=== PATIENT | male | born 1980 | race Caucasian/White ===

== ENCOUNTER 2021-05-20 23:32 | Inpatient (IN) | payer MEDICARE, MEDICAID, SELFPAY ==
[2021-05-20 23:56] VITALS: BMI 36.9
--- NOTE | 2021-05-21 01:14 | PC.ADMIT ---
Pt is a 41 year old male, Covid Negative, Tox + for Benzo, amphetamine(Aderalle). Diagnosis: Schizoaffective Disorder Bipolar type. Pt was seen transferred from [facility] after being seen in the [facility] with dishevelled appearance. Upon admission pt appears disorganized, stating that he would be relocating to [place] after Discharge. Speech is pressured, with normal rate rhythm and carlos eduardo. Pt states he would like to establish therapy care with a therapist in [place]..
--- NOTE | 2021-05-21 05:34 | PC.NURSE ---
05/21/21: PATIENT SIGNED A 3 DAY NOTICE. UP ON 05/26/21
[2021-05-21 06:00] VITALS: BP 143/69; PULSE 64; RESP 16; TEMP 35.8; O2SAT 100
[2021-05-21 08:35] LABS: MANUAL DIFF FLAG NO
[2021-05-21 08:42] LABS: Basophils Absolute Auto 0.1 X10*3/uL (0.0-0.2); Eosinophils Absolute Auto 0.2 X10*3/uL (0.0-0.4); Eosinophils Percent Auto 3.5 % (0-4); Hemoglobin 13.2 g/dl (14.0-18.0); Imm Gran Abs Auto 0.01 X10*3/uL (0.00-0.03); Imm Gran Pct Auto 0.2 % (0.0-0.4); Lymphocytes Absolute Auto 1.7 X10*3/uL (1.2-4.9); Lymphocytes Percent Auto 29.4 % (20-40); Mean Corpuscular Hemoglobin 31.3 pg (27.0-33.0); Mean Corpuscular Volume 94.8 fL (80-98); Mean Platelet Volume 10.8 fL (9.4-12.4); Monocytes Absolute Auto 0.6 X10*3/uL (0.1-1.2); Monocytes Percent Auto 10.8 % (2-11); Neutrophils Absolute Auto 3.2 X10*3/uL (2.0-8.3); Neutrophils Percent Auto 55.1 % (45-73); Platelet Count 246 X10*3/uL (160-400); Red Blood Count 4.22 X10*6/uL (4.60-5.80); Red Cell Distribution Width 13.8 % (11.0-16.0); White Blood Count 5.7 X10*3/uL (4.8-10.8)
[2021-05-21 09:43] LABS: Alanine Aminotransferase 9 U/L (0-40); Albumin Level 3.9 g/dL (3.5-5.0); Alkaline Phosphatase 41 U/L (39-117); Anion Gap 9 (12-20); Aspartate Amino Transferase 12 U/L (5-37); Bilirubin Total 0.2 mg/dL (0.0-1.0); Blood Urea Nitrogen 13 mg/dL (9-16); Calcium 8.9 mg/dL (8.4-10.2); Carbon Dioxide 23 mmol/L (22-29); Chloride 112 mmol/L (96-108); Cholesterol 136 mg/dL; Creatinine Clr Calc Pharmacy 129.4; Estimated Glomerular Filt Rate > 60; Glucose Fasting 90 mg/dL (60-99); HDL Cholesterol 35 mg/dL; LDL Cholesterol Calculated 69 mg/dl; Potassium 4.3 mmol/L (3.3-5.1); Sodium 140 mmol/L (135-145); Total Protein 6.6 g/dL (6.5-8.0); Triglycerides 162 mg/dL
[2021-05-21 09:50] LABS: Folate 6.5 ng/mL (> or = 4.0); Vitamin B12 413 pg/mL (200-900)
[2021-05-21 10:04] LABS: Free T4 (Free Thyroxine) 0.97 ng/dL (0.71-1.85); Thyroid Stimulating Hormone 1.94 uIU/mL (0.32-4.0)
[2021-05-21 10:06] LABS: Estimated Average Glucose 91 mg/dL; Hemoglobin A1c % 4.8 %
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
[2021-05-21] MEDS: Nicotine Polacrilex 2 MG GUM 4 MG BUCCAL ×2 (16:35→19:54)
[2021-05-21] MEDS: Nicotine 21 MG PATCH.TD24 TRANSDERMA (16:36)
[2021-05-21] MEDS: Amphetamine Mixed Salts 10 MG TABLET 30 MG PO (16:36)
[2021-05-21] MEDS: lamoTRIgine 100 MG TABLET PO (16:36)
[2021-05-21] MEDS: Topiramate 100 MG TABLET 200 MG PO (17:03)
[2021-05-21] MEDS: Rivaroxaban 20 MG TABLET PO (17:46)
[2021-05-21 18:00] VITALS: BP 140/74; PULSE 62; RESP 16; TEMP 36.1; O2SAT 100
[2021-05-21 20:34] VITALS: BP 119/87; PULSE 123
[2021-05-21] MEDS: Lithium Carbonate 300 MG TABLET 900 MG PO (20:34)
[2021-05-21] MEDS: Melatonin 3 MG TABLET 6 MG PO (20:34)
[2021-05-21] MEDS: Propranolol HCL 20 MG TABLET PO (20:34)
[2021-05-21] MEDS: hydrOXYzine HCL 50 MG TABLET PO (21:51)
[2021-05-22 06:00] VITALS: BP 143/66; PULSE 56; RESP 16; TEMP 36.1; O2SAT 100
[2021-05-22] MEDS: Amphetamine Mixed Salts 10 MG TABLET 30 MG PO ×2 (08:54→14:19)
[2021-05-22] MEDS: lamoTRIgine 100 MG TABLET PO (08:55)
[2021-05-22] MEDS: Topiramate 100 MG TABLET 200 MG PO (08:55)
[2021-05-22] MEDS: Nicotine 21 MG PATCH.TD24 TRANSDERMA (08:55)
[2021-05-22 09:52] VITALS: BP 133/76; PULSE 97
[2021-05-22] MEDS: Propranolol HCL 20 MG TABLET PO ×2 (09:52→20:27)
[2021-05-22] MEDS: Nicotine Polacrilex 2 MG GUM 4 MG BUCCAL ×2 (14:20→16:48)
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
[2021-05-22] MEDS: Rivaroxaban 20 MG TABLET PO (16:48)
[2021-05-22 18:00] VITALS: BP 134/88; PULSE 119; RESP 16; TEMP 36.1; O2SAT 99
[2021-05-22 20:27] VITALS: BP 134/88; PULSE 119
[2021-05-22] MEDS: Lithium Carbonate 300 MG TABLET 900 MG PO (20:27)
[2021-05-22] MEDS: Melatonin 3 MG TABLET 6 MG PO (20:27)
[2021-05-22] MEDS: hydrOXYzine HCL 25 MG TABLET PO (20:28)
--- NOTE | 2021-05-22 23:26 | HO.PSYCHPN ---
Subjective Subjective Date of Service: 05/22/21 Reason For Visit: Depression Subjective Notes: 3 Day Interim History: pt seen on 05/22/21 pt reports that he's good' and continues to deny any SI/HI/AVH, He reports meds are well tolerated. Pt c/o infection on left lower leg which lyric writer examines and looks like possible cellulites. Patient reiterates that he is doing fine and ready to go. His 3 day is up on 05/23 and though he initially said he would stay over the weekend, said he is ready to go home, and very much wants to get his dog out of the kennel. College Tutor mentioned that patient seemed to be talking a little fast to which patient agreed but said it is only damaso he is feeling a little excited, planning his discharge. College Tutor asked patient to remain on the unit a little longer to get lab work done and monitor his cellulitis, however patient politely declined and said he feels ready to go and said he will be able to follow-up with his outpatient doctor. His plan is to go home to his house here in [place], pack up his stuff and then proceed with his plan to move to [place]. Of note, social Work was able to get a hold of patient's outpt clinic and was informed that patient's outpt doc is aware of plan for pt to relocate to [place] for some time and has been helping with his transition of care. Patient reports sleeping well and is tolerating medications. Medication Compliance: Yes Side effects from medications: No Mental Status Exam Mental Status Exam Narrative: Pt is alert and oriented; behavior is cooperative; wearing hospital gown with adequate hygiene;? mood is described as good affect a little blunted; eye contact appropriate; Speech is a little pressured but normal volume. No psychomotor agitation/retardation;? thought process is goal directed and linear but concrete. Thought content is on discharge and sticking to his plan; TC is relevant to pertinent topics; some delusional, persecutory thinking; no grandiosity; denies any SI/HI. Denies AVH and There is no evidence of perceptual disturbance. ?Patients insight and judgment appear are fair. Diagnostics Vital Signs (24Hr): Vital Signs - 24 hr 05/22/21 06:00 05/22/21 09:52 05/22/21 18:00 Temperature 96.9 F 97 F Pulse Rate 56 97 119 H Respiratory Rate 16 16 Blood Pressure 143/66 H 133/76 134/88 Pulse Oximetry 100 99 05/22/21 20:27 Temperature Pulse Rate 119 H Respiratory Rate Blood Pressure 134/88 Pulse Oximetry Body Mass Index 36.9 Labs Results: 05/21/21 08:02 05/23/21 06:54 Labs: Laboratory Results - last 48 hr 05/21/21 05/21/21 05/21/21 08:02 08:02 08:02 WBC 5.7 RBC 4.22 L Hgb 13.2 L Hct 40.0 L MCV 94.8 MCH 31.3 MCHC 33.0 RDW 13.8 Plt Count 246 MPV 10.8 Immature Gran % (Auto) 0.2 Neut % (Auto) 55.1 Lymph % (Auto) 29.4 [place] % (Auto) 10.8 Eos % (Auto) 3.5 Baso % (Auto) 1.0 Lymph # (Auto) 1.7 [place] # (Auto) 0.6 Eos # (Auto) 0.2 Baso # (Auto) 0.1 Abs Immat Gran (auto) 0.01 Absolute Neuts (auto) 3.2 Absolute Nucleated RBC 0.000 Nucleated RBC % (auto) 0.0 Sodium 140 Potassium 4.3 Chloride 112 H Carbon Dioxide 23 Anion Gap 9 L BUN 13 Creatinine 0.97 Estim Creat Clear Calc 129.4 Estimated GFR > 60 Fasting Glucose 90 Estimat Average Glucose 91 Hemoglobin A1c % 4.8 Calcium 8.9 Total Bilirubin 0.2 AST 12 ALT 9 Alkaline Phosphatase 41 Total Protein 6.6 Albumin 3.9 Triglycerides 162 Cholesterol 136 LDL Cholesterol, Calc 69 HDL Cholesterol 35 Vitamin B12 Folate TSH 1.94 Free T4 0.97 05/21/21 08:02 WBC RBC Hgb Hct MCV MCH MCHC RDW Plt Count MPV Immature Gran % (Auto) Neut % (Auto) Lymph % (Auto) [place] % (Auto) Eos % (Auto) Baso % (Auto) Lymph # (Auto) [place] # (Auto) Eos # (Auto) Baso # (Auto) Abs Immat Gran (auto) Absolute Neuts (auto) Absolute Nucleated RBC Nucleated RBC % (auto) Sodium Potassium Chloride Carbon Dioxide Anion Gap BUN Creatinine Estim Creat Clear Calc Estimated GFR Fasting Glucose Estimat Average Glucose Hemoglobin A1c % Calcium Total Bilirubin AST ALT Alkaline Phosphatase Total Protein Albumin Triglycerides Cholesterol LDL Cholesterol, Calc HDL Cholesterol Vitamin B12 413 Folate 6.5 TSH Free T4 Medications Medications Current Medications Generic Name Dose Route Start Last Admin Trade Name Freq PRN Reason Stop Dose Admin Acetaminophen 650 mg 05/21/21 02:31 Acetaminophen 325 Mg Tablet PO Q6H PRN Headache/Pain Mild Scale (1-3) Al Hydroxide/Mg Hydroxide 30 ml 05/21/21 02:31 Magnesium Hydrox/Alum Hydrox 30 Ml Oral.Susp PO Q6H PRN Heartburn/Nausea Amphetamine/Dextroamphetamine 30 mg 05/22/21 08:30 05/22/21 14:19 Amphetamine Mixed Salts 10 Mg Tablet PO 30 mg BID@0830,1330 SULEMA Administration Diphenhydramine HCl 50 mg 05/21/21 10:33 Diphenhydramine Hcl 25 Mg Tablet PO Q4H PRN agitation Haloperidol 5 mg 05/21/21 10:33 Haloperidol 5 Mg Tablet PO Q4H PRN agitation Hydroxyzine HCl 25 mg 05/21/21 02:31 05/22/21 20:28 Hydroxyzine Hcl 25 Mg Tablet PO 25 mg BEDTIME PRN Administration Anxiety Hydroxyzine HCl 50 mg 05/21/21 21:00 05/22/21 20:39 Hydroxyzine Hcl 50 Mg Tablet PO Not Given BEDTIME SULEMA Lamotrigine 100 mg 05/21/21 16:15 05/22/21 08:55 Lamotrigine 100 Mg Tablet PO 100 mg DAILY SULEMA Administration [place] Carbonate 900 mg 05/21/21 21:00 05/22/21 20:27 [place] Carbonate 300 Mg Tablet PO 900 mg BEDTIME SULEMA Administration Lorazepam 2 mg 05/21/21 10:33 Lorazepam 1 Mg Tablet PO Q4H PRN agitation Magnesium Hydroxide 30 ml 05/21/21 02:31 Milk Of Magnesia 30 Ml Oral.Susp PO DAILY PRN Constipation Melatonin 6 mg 05/21/21 21:00 05/22/21 20:27 Melatonin 3 Mg Tablet PO 6 mg BEDTIME SULEMA Administration Nicotine 21 mg 05/22/21 09:00 05/22/21 08:55 Nicotine 21 Mg Patch.Td24 TRANSDERMA 21 mg DAILY SULEMA Administration Nicotine Polacrilex 4 mg 05/21/21 16:13 05/22/21 16:48 Nicotine Polacrilex 2 Mg Gum BUCCAL 4 mg Q2H PRN Administration smoking cessation Propranolol HCl 20 mg 05/21/21 21:00 05/22/21 20:27 Propranolol Hcl 20 Mg Tablet PO 20 mg BID SULEMA Administration Protocol Rivaroxaban 20 mg 05/22/21 17:00 05/22/21 16:48 Rivaroxaban 20 Mg Tablet PO 20 mg DAILY@1700 SULEMA Administration Topiramate 200 mg 05/22/21 09:00 05/22/21 08:55 Topiramate 100 Mg Tablet PO 200 mg DAILY SULEMA Administration Trazodone HCl 50 mg 05/21/21 02:31 Trazodone Hcl 50 Mg Tablet PO BEDTIME PRN Insomnia Trazodone HCl 100 mg 05/21/21 16:13 Trazodone Hcl 100 Mg Tablet PO BEDTIME PRN insomnia Trimethoprim/Sulfamethoxazole 1 tab 05/22/21 16:00 05/22/21 16:48 Sulfamethox/Trimeth 800/160 1 Tab Tablet PO 05/27/21 15:59 1 tab Q12H SULEMA Administration Allergies Allergies Allergy/AdvReac Type Severity Reaction Status Date / Time morphine Allergy Unknown Unknown Verified 05/21/21 02:30 Opioids - Morphine Analogues Allergy Unknown Unknown Verified 05/21/21 02:29 oxycodone Allergy Unknown unknown Verified 05/21/21 02:30 Tetracyclines Allergy Unknown Unknown Verified 05/21/21 02:28 Assessment & Plan Assessment & Plan (1) Cellulitis and abscess of leg: Status: Acute Code(s): L03.119 - Cellulitis of unspecified part of limb; L02.419 - Cutaneous abscess of limb, unspecified Assessment and Plan: This is a 41 year old male with 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 Pt was found in [place], naked except for belt stuffed with vegetation. Most of patients symptoms seem to have cleared up while treated at [facility] and back on medications. He is mildly pressured, but organized in speech and behavior, making logical assessment of recent manic episode and appropriate decisions regarding medications. Patient has paranoid, delusional concern regarding being harassed and poor insight into this aspect of psychiatric illness, but he denies any SI or HI and says he plans to move away from current location to avoid harassment. Pt has 3 day notice in and says he wants to leave no later than Wednesday since he plans to move to [place]. Will admit for observation and to assess patient organization and safety. However, he currently does present as one in imminent risk for harm to self or others and having been treated at [facility] just prior to this admission, seems to have likely returned to near baseline. If patient remains stable on unit, will likely honor discharge request. Hospital course: Patient remains stable, in good mood, without any SI or HI, with organized behavior and speech; he has some delusional paranoid thoughts about the police in his neighborhood, however these are chronic; patient has no other symptoms of psychosis. Patient reports tolerating his medications well and has plan to follow up with his outpatient providers 1 of whom is helping him transition his care to his planned relocation in [place]. Patient's 3 day is up on 05/23. College Tutor encouraged patient to remain on the unit for lab work and further assessment of cellulitis which is not being treated with antibiotics however patient declines saying he is fine, he is back to his normal self and ready to go home. Of note, patient had a chance to stabilize for a few days at [facility], prior for being transferred here for admission. Patient has been appropriate with staff and peers on the unit, demonstrating good impulse and behavioral control. Patient is not in imminent risk for harm to self or others and does not meet criteria for involuntary commitment. His request for discharge was honored. Of note, while it is preferable that patient remain on unit to check lithium level and other lab work, patient has been tolerating his current med occasion regimen for quite some time without issue. Patient knows all of his medications and doses well and says he will follow-up with his primary care physician and psychiatric provider. PLAN pt on 3 day notice 05/23 q 15min checks will continue medication regimen from [facility]; staff did med rec and current regimen looks to be what he's recently been prescribed.? Pt says he has not taking any antipsychotic meds for months which is corroborated by pharmacy Patient seen by Dr. Javed for right leg cellulitis and started on antibiotics. See more details below: ...currently admitted to the psychiatric floor with 3 days of redness and pain around pustule on right leg Small abscess with surrounding cellulitis open and draining, no fluctuance/induration. no need for I&D at this time No systemic signs or symptoms allergy to doxycycline, h/o MRSA -bactrim x 5 days -monitor for resolution of erythema Greater than 50% of the session was spent on counseling and/or coordination of care Reason for contiued inpatient stay Substantial Risk for: stable for discharge
[2021-05-23] MEDS: Nicotine Polacrilex 2 MG GUM 4 MG BUCCAL (07:18)
[2021-05-23 07:29] LABS: Lithium 0.55 mmol/L (0.60-1.20)
[2021-05-23 07:43] LABS: Anion Gap 12 (12-20); Blood Urea Nitrogen 23 mg/dL (9-16); Carbon Dioxide 25 mmol/L (22-29); Chloride 107 mmol/L (96-108); Creatinine Clr Calc Pharmacy 116.2; Estimated Glomerular Filt Rate > 60; Potassium 4.8 mmol/L (3.3-5.1); Sodium 139 mmol/L (135-145)
[2021-05-23] MEDS: Amphetamine Mixed Salts 10 MG TABLET 30 MG PO (08:06)
[2021-05-23] MEDS: Topiramate 100 MG TABLET 200 MG PO (08:08)
[2021-05-23] MEDS: lamoTRIgine 100 MG TABLET PO (08:08)
[2021-05-23 08:09] VITALS: BP 126/79; PULSE 65
[2021-05-23] MEDS: Propranolol HCL 20 MG TABLET PO (08:09)
[2021-05-23] MEDS: Nicotine 21 MG PATCH.TD24 TRANSDERMA (08:10)
[2021-05-23 08:35] VITALS: BP 126/79; PULSE 65; RESP 16
--- NOTE | 2021-05-23 11:00 | P.DS_ITS ---
DS: Providers Provider Date of Service: 05/23/21 Date of admission: 05/20/21 23:32 Date of discharge: 05/23/21 Primary care physician: Unknown Physician Attending physician on admission: Gibson Burt Consults: 05/22/21 10:17 Consult to Hospitalist Routine Consulting Provider: Hospitalist Reason For Exam: right lower leg infection r/o cellulitis Attending physician on discharge: Gibson Burt DS: Diagnosis Discharge Diagnosis (1) Schizoaffective disorder: Status: Chronic (2) Cellulitis and abscess of leg: Status: Acute (3) DVT (deep venous thrombosis): Status: Resolved DS: Medications Discharge Medications Home Medications: Home Medications Medication Instructions Recorded Confirmed dextroamphetamine-amphetamine 30 1 tab PO BID 05/21/21 05/21/21 mg tablet Previous Rx's Medication Instructions Recorded hydroxyzine HCl 50 mg tablet 50 mg PO BEDTIME 30 Days #30 tab 05/23/21 lamotrigine 100 mg tablet 100 mg PO DAILY 30 Days #30 tab 05/23/21 lithium carbonate 300 mg tablet 900 mg PO BEDTIME 30 Days #90 tab 05/23/21 melatonin 3 mg tablet 6 mg PO BEDTIME PRN 30 Days #60 tab 05/23/21 nicotine 21 mg/24 hr daily 1 patch TOPICAL DAILY 30 Days #28 05/23/21 transdermal patch ea propranolol 20 mg tablet 20 mg PO BID 30 Days #60 tab 05/23/21 rivaroxaban 20 mg tablet (Xarelto) 20 mg PO DAILY 30 Days #30 tab 05/23/21 sulfamethoxazole 800 1 tab PO Q12H 5 Days #9 tab 05/23/21 mg-trimethoprim 160 mg tablet topiramate 100 mg tablet 200 mg PO DAILY 30 Days #60 tab 05/23/21 trazodone 100 mg tablet 100 mg PO BEDTIME PRN 30 Days #30 05/23/21 tab Mental Status Exam Mental Status Exam Narrative: ?Pt is alert and oriented; behavior is cooperative; wearing hospital gown with adequate hygiene;? mood is described as good ? affect a little blunted; eye contact appropriate; Speech is a little pressured but normal volume. No psychomotor agitation/retardation;? thought process is goal directed and linear but concrete. Thought content is on discharge and sticking to his plan; TC is relevant to pertinent topics; some delusional, persecutory thinking; no grandiosity; denies any SI/HI. Denies AVH and There is no evidence of perceptual disturbance. ?Patients insight and judgment appear are fair. Data Data Completed and Pending Completed studies during hospitalization [Text1]: 05/21/21 05/21/21 05/21/21 08:02 08:02 08:02 WBC 5.7 RBC 4.22 L Hgb 13.2 L Hct 40.0 L MCV 94.8 MCH 31.3 MCHC 33.0 RDW 13.8 Plt Count 246 MPV 10.8 Immature Gran % (Auto) 0.2 Neut % (Auto) 55.1 Lymph % (Auto) 29.4 [place] % (Auto) 10.8 Eos % (Auto) 3.5 Baso % (Auto) 1.0 Lymph # (Auto) 1.7 [place] # (Auto) 0.6 Eos # (Auto) 0.2 Baso # (Auto) 0.1 Abs Immat Gran (auto) 0.01 Absolute Neuts (auto) 3.2 Absolute Nucleated RBC 0.000 Nucleated RBC % (auto) 0.0 Sodium 140 Potassium 4.3 Chloride 112 H Carbon Dioxide 23 Anion Gap 9 L BUN 13 Creatinine 0.97 Estim Creat Clear Calc 129.4 Estimated GFR > 60 Fasting Glucose 90 Estimat Average Glucose 91 Hemoglobin A1c % 4.8 Calcium 8.9 Total Bilirubin 0.2 AST 12 ALT 9 Alkaline Phosphatase 41 Total Protein 6.6 Albumin 3.9 Triglycerides 162 Cholesterol 136 LDL Cholesterol, Calc 69 HDL Cholesterol 35 Vitamin B12 Folate TSH 1.94 Free T4 0.97 [place] 05/21/21 05/23/21 05/23/21 08:02 06:54 06:54 WBC RBC Hgb Hct MCV MCH MCHC RDW Plt Count MPV Immature Gran % (Auto) Neut % (Auto) Lymph % (Auto) [place] % (Auto) Eos % (Auto) Baso % (Auto) Lymph # (Auto) [place] # (Auto) Eos # (Auto) Baso # (Auto) Abs Immat Gran (auto) Absolute Neuts (auto) Absolute Nucleated RBC Nucleated RBC % (auto) Sodium 139 Potassium 4.8 Chloride 107 Carbon Dioxide 25 Anion Gap 12 BUN 23 H D Creatinine 1.08 Estim Creat Clear Calc 116.2 Estimated GFR > 60 Fasting Glucose Estimat Average Glucose Hemoglobin A1c % Calcium Total Bilirubin AST ALT Alkaline Phosphatase Total Protein Albumin Triglycerides Cholesterol LDL Cholesterol, Calc HDL Cholesterol Vitamin B12 413 Folate 6.5 TSH Free T4 Brilliant 0.55 L DS: Summary Hospital Course Hospital Course: This is a 41 year old male with 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 and with hx of schizoaffective disorder who presents for manic, disorganized behavi or after being treated at [facility] for 2 days. Pt was found in [place], naked except for belt stuffed with vegetation. Most of patients symptoms seem to have cleared up while treated at [facility] and back on medications. He is mildly pressured, but organized in speech and behavior, making logical assessment of recent manic episode and appropriate decisions regarding medications. Patient has paranoid, delusional concern regarding being harassed and poor insight into this aspect of psychiatric illness, but he denies any SI or HI and says he plans to move away from current location to avoid harassment. Pt has 3 day notice in and says he wants to leave no later than Wednesday since he plans to move to [place]. Patient admitted for observation and to assess patients organization and safety. However, he currently does NOT present as one in imminent risk for harm to self or others and having been treated at [facility] just prior to this admission, seems to have likely returned to near baseline. If patient remains stable on unit, will likely honor discharge request. Throughout his admission Patient remains stable, in good mood, without any SI or HI, with organized behavior and speech; he has some delusional paranoid thoughts about the police in his neighborhood, however these are chronic; patient has no other symptoms of psychosis.? Patient tolerated his medications well and has plan to follow up with his outpatient providers, 1 of whom is helping him transition his care to his planned relocation in [place].? Patient's 3 day wasup on 05/23.? Roll Up Operator encouraged patient to remain on the unit for lab work and further assessment of cellulitis which is not being treated with antibiotics however patient declines saying he is fine, he is back to his normal self and ready to go home.? Patient? has been appropriate with staff and peers on the unit, demonstrating good impulse and behavioral control.? Patient is not in imminent risk for harm to self or others and does not meet criteria for involuntary commitment.? His request for discharge was honored. Of note, while it is preferable that patient remain on unit to check lithium level and other lab work, patient has been tolerating his current med occasion regimen for quite some time without issue.? Patient knows all of his medications and doses well and says he will follow-up with his primary care physician and psychiatric provider. Roll Up Operator did not discharge patient with Adderall script since he has last script was filled on 05/13/2021 While on unit patient complained of right leg infection.Patient seen by Dr. Javed for right leg cellulitis and started on antibiotics. Patient was made an appointment with PCP prior to discharge. Time spent discussing smoking cessation with patient: 3 to 10 minutes Status at Discharge Functional status at discharge: independent ambulation Overall status at discharge: patient is back to baseline Time Spent with Patient Time attestation: Total time spent providing and/or coordinating discharge services: Time spent: Greater than 30 minutes Discharge Plan Discharge Patient Disposition: Home, Self-Care Discharge Diagnosis: Schizoaffective disorder, bipolar type Referrals: Psych Prescriber: Michelle Bliss ([facility]) [Other] - 06/24/21 9:30 am (Telehealth ) Gurinder Montoya [Other] - 1 Week (Appointment at 10:30 am Wednesday, May 26, 2021) Physician,Unknown [Primary Care Provider] - 1 Week Discharge Medications: New sulfamethoxazole-trimethoprim 800-160 mg Tablet 1 tab PO Q12H 5 Days Qty: 9 RF: 0 topiramate 100 mg Tablet 200 mg PO DAILY 30 Days Qty: 60 RF: 0 melatonin 3 mg Tablet 6 mg PO BEDTIME PRN (Reason: sleep) 30 Days Qty: 60 RF: 0 Continued dextroamphetamine-amphetamine 30 mg tablet 1 tab PO BID RF: 0 nicotine 21 mg/24 hr patch 24 hour 1 patch topical DAILY 30 Days Qty: 28 RF: 0 Changed hydroxyzine HCl 50 mg tablet 50 mg PO BEDTIME 30 Days Qty: 30 RF: 0 trazodone 100 mg tablet 100 mg PO BEDTIME PRN (Reason: insomnia) 30 Days Qty: 30 RF: 0 propranolol 20 mg tablet 20 mg PO BID 30 Days Qty: 60 RF: 0 lithium carbonate 300 mg tablet 900 mg PO BEDTIME 30 Days Qty: 90 RF: 0 lamotrigine 100 mg tablet 100 mg PO DAILY 30 Days Qty: 30 RF: 0 Xarelto 20 mg tablet 20 mg PO DAILY 30 Days Qty: 30 RF: 0 Discontinued quetiapine 25 mg tablet 25 mg PO RF: 0 gabapentin 600 mg tablet 2 tab PO BEDTIME RF: 0 olanzapine 10 mg tablet 1 tab PO BID RF: 0 topiramate 100 mg tablet 1 tab PO DAILY RF: 0 aripiprazole 30 mg tablet 1 tab PO DAILY RF: 0 Discharge Orders: Discharge Order (Routine); Ordered 05/23/21 Ordered By: Gibson Burt Diet: regular diet Activity on Discharge: As tolerated Stand Alone Forms: Patient Portal Discharge page, Community Support Care Plan Goals: Maintain mood and safe behaviors Take medications as prescribed Practice coping skills Continue with outpatient providers and reach out to them as needed ? Health Concerns: Mood stability and behaviors history of DVT Right leg Cellulites Plan of Treatment: Follow up with your PCP and psychiatric provider regarding above concerns Take medications as prescribed Assessment: Risk assessment at time of discharge:? Patient was interviewed prior to discharge and found to be fully oriented and without any SI or HI. Patient has insight and demonstrates good judgment in terms of wanting to pursue treatment. Patient is not in imminent risk of harm to self or others and has a safety plan that includes presenting to the closest ER or calling 911 if feeling unsafe.? Patient has been observed closely by nursing and unit staff throughout admission; patient has not engaged in any behaviors that suggest dangerousness to self or others and has demonstrated appropriate behaviors and impulse control. Discharge Date/Time: 05/23/21 13:00
[2021-05-23] MEDS: Magnesium Hydrox/Alum Hydrox 30 ML ORAL.SUSP PO (11:48)
== END 2021-05-23 13:00 | disposition home or self-care (01) | DRG 885 ==
PROVIDERS: Clinical Nurse Specialist Psychiatric/Mental Health, Adult; Admitting Provider Psychiatry & Neurology Psychiatry; Visit Provider Psychiatry & Neurology Psychiatry
DX: F25.9 Schizoaffective disorder, unspecified (principal); L02.415 Cutaneous abscess of right lower limb; L03.115 Cellulitis of right lower limb; F17.290 Nicotine dependence, other tobacco product, uncomplicated; Z86.718 Personal history of other venous thrombosis and embolism; Z88.5 Allergy status to narcotic agent; Z79.01 Long term (current) use of anticoagulants; Z79.899 Other long term (current) drug therapy
CPT/HCPCS: 36415; 80051; 80053; 80061; 80178; 82565; 82607; 82746; 83036; 84439; 84443; 84520; 85025